=== PATIENT | male | born 1995 | race Caucasian/White ===

== ENCOUNTER 2021-05-25 16:43 | Emergency (ER) | payer BC, SELFPAY ==
[2021-05-25 18:13] LABS: COVID-19 Test Positive (Negative)
[2021-05-25 19:28] VITALS: BP 187/115; PULSE 90; RESP 20; TEMP 36.6; O2SAT 99; BMI 73.2
[2021-05-25 20:43] VITALS: BP 167/99; PULSE 77
--- NOTE | 2021-05-25 21:00 | ED_ITS ---
HPI - URI/Sore Throat General Chief Complaint: Upper Respiratory Symptoms Stated Complaint: headache,cough,sore throat Time Seen by Provider: 05/25/21 20:39 Source: patient and police Mode of arrival: ambulatory Limitations: no limitations History of Present Illness HPI Narrative: 26-year-old male presents to ED for headache, sore throat, and fatigue after COVID exposure. Patient states he is vaccinated. Patient states no chest pain or shortness of breath. Related Data Previous Rx's Medication Instructions Recorded albuterol sulfate 90 mcg/actuation 2 puff INHALATION QID PRN #8.5 g 05/25/21 aerosol inhaler Allergies Allergy/AdvReac Type Severity Reaction Status Date / Time No Known Allergies Allergy Unverified 05/25/21 19:30 Review of Systems Review of Systems: Yes all other systems are reviewed and are negative [facility] Past Medical History Medical History (Updated 05/25/21 @ 21:13 by NATANAEL Napoles) Dwarfism Social History Social History Advance Directives: No Advance Directives Information Provided: Yes Physical Exam Vital Signs: Vital Signs: Last Vital Signs Temp 97.8 F 05/25/21 19:28 Pulse 77 05/25/21 20:43 Resp 20 05/25/21 19:28 BP 167/99 H 05/25/21 20:43 Pulse Ox 99 05/25/21 19:28 BMI result Body Mass Index 73.2 Const: General: cooperative, healthy appearing, comfortable, no acute distress and well developed Orientation/consciousness: oriented to time and patient oriented x3 HENMT: Head: Yes normal to inspection, Yes No palpable skull fracture present, Yes normocephalic and Yes atraumatic Throat: Yes posterior oropharynx normal, Yes tonsils normal and Yes uvula midline Eyes: General: appearance normal, both eyes and all related structures Neck: Neck: Yes normal visual inspection, Yes full ROM, Yes no lymphadenopathy, Yes no meningeal signs, Yes trachea midline, Yes supple, No anterior neck swelling and No tender Chest: Chest palpation & inspection: normal inspection of the chest and normal palpation of entire chest wall Resp: Effort & Inspection: normal respiratory effort and able to speak in complete sentences Auscultation: clear to auscultation bilaterally Cardio: Jugular venous distension: no JVD Heart sounds: S1 normal heart sound present and S2 normal heart sound present GI: Inspection: Yes normal to inspection and No abdominal wall ecchymosis Palpation (GI): Soft to palpation, not firm, nontender, no guarding and not rigid : General: No CVA tenderness and Yes no CVA tenderness Back/Spine/Pelvis: Back: no CVA tenderness, No CVA tenderness and No warmth Skin: General skin exam: no rashes or lesions noted and elasticity normal Neuro: General: oriented to time, patient oriented x3, Normal light touch and pain sensation and no meningeal signs Extrem: General: Yes normal to inspection and Yes full ROM Psych: Appearance: grossly normal, well kempt and not disheveled Course Course Course Narrative: Patient tested for COVID Reevaluation(s) Reevaluation #1: COVID swab negative. MDM - URI/Sore Throat MDM Narrative Medical decision making narrative: COVID Lab Data Labs: Lab Results 05/25/21 Range/Units 17:50 COVID-19 ([facility]) Positive A (Negative) COVID-19 Clin Com See Note Discharge Plan Discharge Clinical Impression: COVID-19 Patient Disposition: Home, Self-Care Instructions: COVID-19 (Coronavirus Disease 2019) (ED) Additional Instructions: You came back positive for COVID-19. Recommend 10 days self-quarantine. Return to ED for any chest pain shortness of breath, or any other concerning symptoms. Your blood pressure was elevated during the ED visit please follow-up with your primary care in regards to re-evaluating your blood pressure. Prescriptions: New albuterol sulfate 90 mcg/actuation HFA aerosol inhaler 2 puff inhalation QID PRN (Reason: shortness of breath or wheezing) Qty: 8.5 RF: 0 Stand Alone Forms: Work/School Release Interventions: ED Discharge Assessment Last Done: 05/25/21 21:23 Discharge Date/Time: 05/25/21 21:23 Print Language: [place]
== END 2021-05-25 21:23 | disposition home or self-care (01) ==
PROVIDERS: Emergency Provider Emergency Medicine Emergency Medical Services; PCP Internal Medicine
DX: U07.1 COVID-19 (principal); R51.9 Headache, unspecified
CPT/HCPCS: 36415; 87635; 99283